=== PATIENT | male | born 1995 | race Caucasian/White ===

== ENCOUNTER 2021-05-05 20:14 | Emergency (ER) | payer MEDICAID ==
[~2021-05-05] VITALS: Ht 182.9 cm; Wt 99.8 kg
[2021-05-05 20:30] VITALS: BP 113/60
--- NOTE | 2021-05-05 20:33 | NUR ---
TO LOBBY A/W BED AMBULATORY
--- NOTE | 2021-05-05 22:37 | NUR ---
ERMD AT BEDSIDE. 25 YO M BIB SELF WITH C/C OF L HAND PAIN X 10AM S/P DROPPING 45LB WT ON HAND. PAIN IS SHARP AND WORSENS WITH MOVEMENT. DENIES TAKING PAIN MEDS. PT STATED HE APPLIED ICE AND ELEVATED HAND WHICH HELPED A LITTLE. PT CAME IN BECAUSE HE NOTICED HAND BEGAN TO SWELL AND HAS NUMBNESS ON FINGERS. VISIBLE SWELLING AROUND 5TH METATARSAL. DENIES HX AND ALLERG.
[2021-05-05] MEDS ORDERED: KETOROLAC 30 MG/ML VIAL ONE (23:02)
[2021-05-05] MEDS ORDERED: ONDANSETRON 4 MG/2 ML VIAL ONE (23:02)
[2021-05-05] MEDS ORDERED: MORPHINE SULFATE 2 MG/ML SYR ONE (23:03)
[2021-05-05] MEDS ORDERED: ONDANSETRON 4 MG/2 ML VIAL IVP ONE ×2 (23:25→23:35)
[2021-05-05] MEDS ORDERED: KETOROLAC 30 MG/ML VIAL IVP ONE (23:25)
[2021-05-05] MEDS ORDERED: MORPHINE SULFATE 2 MG/ML SYR IVP ONE (23:25)
[2021-05-05] MEDS ORDERED: KETAMINE 500 MG/5 ML VIAL IVP ONE (23:25)
--- NOTE | 2021-05-06 00:27 | NUR ---
PLEASE SEE MOD SEDATION RECORD FOR PROCEDURE DETAILS.
--- NOTE | 2021-05-06 01:13 | NUR ---
xray at bedside.
[2021-05-06] MEDS ORDERED: PROPOFOL 200 MG/20 ML VIAL IV ONE ×2 (01:43→02:05)
[2021-05-06] MEDS ORDERED: MIDAZOLAM 5 MG/1 ML VIAL ONE (02:01)
[2021-05-06] MEDS ORDERED: IBUP-1801 PO (02:06)
[2021-05-06] MEDS ORDERED: HYDR-5080 PO ×2 (02:06→02:07)
--- NOTE | 2021-05-06 02:34 | NUR ---
pt is awake and alert x4. vss.
[2021-05-06 02:45] VITALS: BP 152/73
--- NOTE | 2021-05-06 02:45 | NUR ---
Patient discharged with v/s stable. Written and verbal after care instructions given and explained. Patient alert, oriented and verbalized understanding of instructions. Wheel Chair Assisted with to car. All questions addressed prior to discharge. ID band removed. Patient advised to follow up with PMD. Rx of norco, ibuprofen given. Patient educated on indication of medication including possible reaction and side effects. Opportunity to ask questions provided and answered.
== END 2021-05-06 02:45 | disposition home or self-care (01) ==
LOC: MED 20:14
DX: S63.267A Dislocation of metacarpophalangeal joint of left little finger, initial encounter (principal); W20.8XXA Other cause of strike by thrown, projected or falling object, initial encounter; Y93.89 Activity, other specified; Y92.89 Other specified places as the place of occurrence of the external cause; Y99.8 Other external cause status
CPT/HCPCS: 26605; 73130; 96374; 96375; 99284; J1885; J2270; J2405; J2704; 26600; J2250; Q0092

== ENCOUNTER 2021-07-02 21:01 | Emergency (ER) | payer MEDICAID, SELFPAY ==
[~2021-07-02] VITALS: Ht 182.9 cm; Wt 90.7 kg
[~2021-07-02 21:01] MED LIST: HYDR-5080 PO; IBUP-1801 PO
[2021-07-02 21:08] VITALS: BP 135/75
--- NOTE | 2021-07-02 21:13 | NUR ---
PT TAKEN TO BED 3
--- NOTE | 2021-07-02 21:20 | NUR ---
Dr. Merino examining patient.
--- NOTE | 2021-07-02 21:25 | NUR ---
patient c/o right elbow pain. patient had scraped right elbow and noticed today swelling and pain. patient has swelling, redness, open wound, no drainage or foul smell. patient 10/10 throbbing and pulsating pain that is constant. patient cleaned area with neosporin and rinsed with water and soap. 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 AAOx4. pmh: hep c Allergies: seafood
[2021-07-02] MEDS ORDERED: NACL 0.9% 1,000 ML IV ONE (21:30)
[2021-07-02] MEDS ORDERED: CLINDAMYCIN 900 MG in DEXTROSE 5% 100 ML IV ONE (21:30)
--- NOTE | 2021-07-02 21:48 | NUR ---
ERMD AT BEDSIDE FOR RESULTS AND RE-EXAMINATION
[2021-07-02 22:03] LABS: BASOPHILS % (AUTO) 0.3 % (0.0-2.0); EOSINOPHILS # (AUTO) 0.2 K/uL (0-0.4); EOSINOPHILS % (AUTO) 1.3 % (0.0-4.0); HEMATOCRIT 45.1 % (36-52); HEMOGLOBIN 15.3 g/dL (12.0-18.0); LYMPHOCYTES # (AUTO) 2.8 K/uL (2.0-11.5); LYMPHOCYTES % (AUTO) 17.5 % (20.5-51.1); MEAN CORPUSCULAR HEMOGLOBIN 29 pg (27-31); MEAN CORPUSCULAR HGB CONC 34 g/dL (33-37); MONOCYTES # (AUTO) 1.2 K/uL (0.8-1.0); MONOCYTES % (AUTO) 7.7 % (1.7-9.3); NEUTROPHILS # (AUTO) 11.5 K/uL (1.8-7.7); NEUTROPHILS % (AUTO) 73.2 % (42.2-75.2); PLATELET COUNT (AUTO) 304 K/uL (140-450); RED BLOOD CELL COUNT(AUTO) 5.31 MIL/uL (4.20-6.10); RED CELL DISTRIBUTION WIDTH 13.9 % (11.6-13.7); WHITE BLOOD COUNT (AUTO) 15.7 K/uL (4.8-10.8)
[2021-07-02] MEDS ORDERED: CLINDAMYCIN 900 MG/6 ML VIAL IV ONE (22:04)
[2021-07-02 22:23] LABS: ALBUMIN 4.2 g/dL (3.4-5.0); ANION GAP 11.6 (8-16); CARBON DIOXIDE 30.3 mmol/L (21-32); POTASSIUM 3.9 mmol/L (3.5-5.1); TOTAL BILIRUBIN 0.8 mg/dL (0.0-1.0)
[2021-07-02] MEDS ORDERED: methylPREDNISolone SS 125 MG/2 ML VIAL ONE (22:59)
[2021-07-02] MEDS ORDERED: diphenhydrAMINE 50 MG/ML VIAL ONE (23:00)
--- NOTE | 2021-07-02 23:07 | NUR ---
PATIENT TO CT VIA W/C
[2021-07-02] MEDS ORDERED: diphenhydrAMINE 50 MG/ML VIAL IVP ONE (23:25)
[2021-07-02] MEDS ORDERED: methylPREDNISolone SS 125 MG/2 ML VIAL IVP ONE (23:25)
[2021-07-03] MEDS ORDERED: NACL 0.9% 2,000 ML IV ONE (00:55)
[2021-07-03] MEDS ORDERED: cefTRIAXone 1,000 MG VIAL ONE (01:20)
[2021-07-03] MEDS ORDERED: CLINDAMYCIN 900 MG in DEXTROSE 5% 100 ML IV ONE (01:40)
--- NOTE | 2021-07-03 01:43 | NUR ---
PATIENT D/C ER TELE HOLD BED 3
--- NOTE | 2021-07-03 01:48 | NUR ---
PATIENT AMBULATED TO THE BATHROOM WITH A STEADY GAIT. PATIENT WAS HANDED A URINE CUP FOR COLLECTION.
--- NOTE | 2021-07-03 01:53 | NUR ---
PATIENT BACK FROM THE BATHROOM. ATTACHED PATIENT TO MONITORS, FLUIDS, AND WILL CONTINUE TO MONITER PATIENT. SAFETY MEASURES ARE IN PLACE.
--- NOTE | 2021-07-03 07:16 | NUR ---
Pt report given to Quinton CESPEDES. Transfer of care at this time.
--- NOTE | 2021-07-03 07:16 | NUR ---
Report and continuation of care received from RUBINA Woody
--- NOTE | 2021-07-03 07:30 | NUR ---
Patient moved from bed 03 to bed 12.
--- NOTE | 2021-07-03 07:30 | NUR ---
Report and transfer of care endorsed to RUBINA Pappas
--- NOTE | 2021-07-03 07:31 | NUR ---
REPORT RECIEVED FROM RUBINA HOUSER FOR TRANSFER OF CARE
[2021-07-03] MEDS ORDERED: HYDROcodone/APAP 7.5/325 MG 1 TAB PO PRN (07:55)
[2021-07-03] MEDS ORDERED: guaiFENesin DM 200/20 MG-10 ML 10 ML UDC PO PRN (07:55)
[2021-07-03] MEDS ORDERED: DOCUSATE SODIUM 100 MG GELCAP PO PRN (07:55)
[2021-07-03] MEDS ORDERED: ZOLPIDEM 5 MG TAB PO PRN (07:55)
[2021-07-03] MEDS ORDERED: NACL 0.9% 1,000 ML IV SCH (07:55)
[2021-07-03] MEDS ORDERED: POTASSIUM CHLORIDE 10 MEQ TABER PO PRN (07:55)
[2021-07-03] MEDS ORDERED: ONDANSETRON 4 MG/2 ML VIAL IM/IVP PRN (07:55)
[2021-07-03] MEDS ORDERED: ACETAMINOPHEN 325 MG TAB PO PRN (07:55)
--- NOTE | 2021-07-03 08:35 | NUR ---
XRAY BEDSIDE WITH PATIENT
[2021-07-03] MEDS ORDERED: LEVOFLOXACIN 750 MG/D5W PREMIX 150 ML IV SCH (09:00)
[2021-07-03] MEDS ORDERED: PANTOPRAZOLE 40 MG TABEC PO SCH (09:00)
--- NOTE | 2021-07-03 09:05 | NUR ---
MRSA SWAB COLLECTED AND HANDED TO ELECTRIC TRIPPER MACHINE OPERATORJOSR HOUSER
--- NOTE | 2021-07-03 09:30 | NUR ---
PT PROVIDED WITH BREAKFAST TRAY BEDSIDE
--- NOTE | 2021-07-03 09:40 | NUR ---
WOUND PHOTOS TAKEN OF ABCWARD AND PLACED INTO PATIENT CHART. SCABING NOTED ON PATIENT L ARM ALONG WITH BILATERAL LE.
[2021-07-03 10:23] LABS: FREE T4 (FREE THYROXINE) 0.9 ng/dL (0.76-1.46); MAGNESIUM 1.9 mg/dL (1.8-2.4); PHOSPHORUS 2.7 mg/dL (2.5-4.9); THYROID STIMULATING HORMONE 0.38 uIU/mL (0.34-3.74)
[2021-07-03 11:19] LABS: PROTHROMBIN TIME 9.9 secs (10.8-13.4)
--- NOTE | 2021-07-03 12:24 | NUR ---
LAB BEDSIDE WITH PATIENT
[2021-07-03 12:44] LABS: APPEARANCE,URINE CLEAR (CLEAR); BILIRUBIN,URINE NEGATIVE (NEGATIVE); BLOOD, URINE NEGATIVE (NEGATIVE); COLOR,URINE YELLOW (YELLOW); LEUKOCYTE ESTERASE ,URINE NEGATIVE (NEGATIVE); NITRITE, URINE NEGATIVE (NEGATIVE); PH,URINE 6.5 (5.0-9.0); UGLUCOSE NEGATIVE (NEGATIVE)
[2021-07-03 12:57] LABS: BARBITURATE, URINE NEGATIVE ng/ml (NEG <=200); BENZODIAZEPINE, URINE NEGATIVE ng/mL (NEG <=200); CANNABINOID, URINE NEGATIVE ng/mL (NEG <=50); COCAINE, URINE NEGATIVE ng/mL (NEG <=300); OPIATE, URINE NEGATIVE ng/mL (NEG <=2000); PHENCYCLIDINE SCREEN,URINE NEGATIVE ng/mL (NEG <=25)
[2021-07-03] MEDS ORDERED: CLINDAMYCIN 600 MG in DEXTROSE 5% 50 ML IV SCH (13:00)
[2021-07-03] MEDS ORDERED: CLINDAMYCIN 600 MG/4 ML VIAL ONE (13:05)
--- NOTE | 2021-07-03 14:19 | NUR ---
PT STATED HE WANTS TO AMA, BUT WOULD LIKE TO SPEAK TO DR. MAE BEFOREHAND. ATTEMPTED TO CALL DR. MAE AND LEFT VOICEMAIL INFORMING ABOUT SITUATION
--- NOTE | 2021-07-03 14:30 | NUR ---
PT STATED HE NO LONGER WANTS TO WAIT TO SPEAK WITH DR. MAE AND WOULD LIKE TO AMA
--- NOTE | 2021-07-03 14:35 | NUR ---
Patient does not wish to proceed with medical care recommended by DR. MAE. Patient given information related to possible complications, up to and including , which could occur as a result of leaving hospital at this time. Patient verbalizes understanding of risks involved leaving against medical advice. Patient has signed AMA form.
[2021-07-03 14:48] VITALS: BP 118/68
--- NOTE | 2021-07-03 15:58 | NUR ---
SPOKE WITH DR. MAE AND INFORMED PT LEFT AMA
[2021-07-04 08:07] LABS: T4 (THYROXINE) 7.2 ug/dL (4.5-12.0)
--- NOTE | 2021-07-05 15:59 | NUR ---
LATE ENTRY--- BOTH NORMAL SALINE 0.9% IV FLUIDS DISCONTINUED AT 1558.
== END 2021-07-03 01:43 | disposition admitted as inpatient to this hospital (09) ==
LOC: MED 21:01 → MTU 07-03 01:43 → UNDOADMIN 07-03 01:43 → UNDODISIN 07-03 14:34
DX: L03.113 Cellulitis of right upper limb (principal); Z20.822 Contact with and (suspected) exposure to COVID-19; F15.90 Other stimulant use, unspecified, uncomplicated; F11.90 Opioid use, unspecified, uncomplicated; Z86.19 Personal history of other infectious and parasitic diseases
CPT/HCPCS: 36415; 71045; 73201; 80053; 80061; 80305; 81003; 82150; 83036; 83605; 83690; 83735; 83880; 84100; 84436; 84439; 84443; 84479; 84484; 85025; 85610; 85651; 85730; 87040; 87081; 87426; 90471; 90715; 96361; 96365; 96367; 96375; 99285; J0696; J1200; J1956; J2930; J3490; Q0092; Q9967; J7030; J7060